=== PATIENT | male | born 1960 | race Caucasian/White ===

== ENCOUNTER → 2019-11-25 11:54 | Outpatient (CLI) | payer SELFPAY ==
[2019-11-25 11:26] VITALS: BMI 21.4
--- NOTE | 2019-11-25 11:59 | RAD_ITS ---
STUDY: X-RAY CHEST REASON FOR EXAM: Male, 59 years old. Fever and cough TECHNIQUE: 2 PA and lateral views of the chest. COMPARISON: None. FINDINGS: The lungs are clear and expanded. There is no demonstrated pleural abnormality. Normal size heart. Normal mediastinum and cheryl. Normal visualized pulmonary arteries. Normal visualized aortic arch and descending thoracic aorta. There are diffuse degenerative changes of the visualized thoracic spine. Normal visualized ribs, clavicles, and shoulders. There is no demonstrated abnormality of the visualized soft tissue structures of the upper abdomen. RAD/Chest PA and Lateral IMPRESSION: No acute pulmonary process Electronically Signed: Alcon Ramos MD at 8:55 EST , Service support ,
== END ==
PROVIDERS: PCP Family Medicine; Referring Provider Nurse Practitioner Family; Visit Provider Nurse Practitioner Family
DX: R05 Cough (principal)
CPT/HCPCS: 71046

== ENCOUNTER → 2019-12-17 11:45 | Outpatient (CLI) | payer SELFPAY ==
[2019-12-17 10:46] VITALS: BMI 21.8
--- NOTE | 2019-12-17 11:48 | EKG12_ITS ---
Test Reason : PRE OP Blood Pressure : / mmHG Vent. Rate : 065 BPM Atrial Rate : 065 BPM P-R Int : 160 ms QRS Dur : 098 ms QT Int : 374 ms P-R-T Axes : 081 082 073 degrees QTc Int : 388 ms Normal sinus rhythm Normal ECG Confirmed by QUIRINO PEÑA, HENRI ([id number]), editor school photograph NELL PAULSON ([id number]) on 12/22/2019 1:13:42 PM Referred By: Vikram Joe Confirmed By:HENRI WIN MD
== END ==
PROVIDERS: PCP Family Medicine; Referring Provider Nurse Practitioner Family; Visit Provider Nurse Practitioner Family
DX: R07.9 Chest pain, unspecified (principal)
CPT/HCPCS: 93005